=== PATIENT | male | born 1980 | race Caucasian/White ===

== ENCOUNTER 2022-07-02 23:20 | Emergency (ER) | payer OTHER ==
[~2022-07-02 23:20] MED LIST: BACLOFEN 10MG T10 MG PO; CIPRO500 M1 PO; MEDROL 4MG DOSEP4 MG PO; VENTOLIN HFA IN18 GM INH
[2022-07-03 00:30] LABS: CORONAVIRUS 2019 SARS-COV-2 NEGATIVE (NEGATIVE); INFLUENZA A NAA NEGATIVE (NEGATIVE)
[2022-07-03 01:15] LABS: BASOPHIL 1.1 % (0-2); EOSINOPHIL 2.9 % (0-5); HCT 47.9 % (42.0-52.0); HGB 16.4 g/dl (13.2-18.0); LYMPHOCYTE 35.7 % (15-48); MCH 33.1 pg (25.0-31.0); MCHC 34.2 g/dL (32.0-36.0); MCV 96.6 fL (78.0-100.0); MONOCYTE 11.2 % (0-12); MPV 8.8 fL (6.0-9.5); NEUTROPHIL 48.4 % (41-80); NRBC 0; PLT 245 K/uL (150-400); RBC 4.96 M/uL (4.70-6.00); RDW 14.2 % (11.5-14.0); WBC 8.1 K/uL (4.0-10.5)
[2022-07-03 01:37] LABS: ALBUMIN 3.6 g/dL (3.4-5.0); BILIRUBIN - TOTAL 0.2 mg/dL (0.2-1.0); BUN/CREAT RATIO (CALC) 16.9 RATIO; CREATININE 0.77 mg/dL (0.67-1.17); GLOBULIN (CALCULATION) 3.9 g/dL; POTASSIUM 4.4 mmol/L (3.5-5.1); TOTAL PROTEIN 7.5 g/dL (6.4-8.2)
== END 2022-07-03 02:15 | disposition home or self-care (01) ==
LOC: FER 23:20
PROVIDERS: Emergency Medicine
DX: J06.9 Acute upper respiratory infection, unspecified (principal); Z20.822 Contact with and (suspected) exposure to COVID-19
CPT/HCPCS: 36415; 71045; 80053; 84484; 85025; 85379; 93005; J1885; U0002